=== PATIENT | female | born 1970 | race Hispanic/Latino ===

== ENCOUNTER 2017-04-25 01:43 | Emergency (ER) | payer BC ==
[2017-04-25 02:42] LABS: Hematocrit 32.7 % (36.0-47.0); Mean Platelet Volume 7.7 fL (7.4-10.4); Red Blood Cell (RBC) Count 4.56 mill/uL (4.20-5.40); White Blood Cell (WBC) Count 14.1 thou/uL (4.8-10.8)
[2017-04-25 02:53] LABS: ALT (SGPT) 43 U/L (8-55); AST (SGOT) 19 U/L (5-34); Alkaline Phosphatase 98 U/L (40-150); Anion Gap 12 mmol/L (10-20); BUN (Urea Nitrogen) 11 mg/dL (7.0-18.7); Bilirubin, Total 0.2 mg/dL (0.2-1.2); Calc. Creatinine Clearance 0 mL/min (70-130); Calcium 8.8 mg/dL (7.8-10.44); Carbon Dioxide 23 mmol/L (22-29); Chloride 107 mmol/L (98-107); Estimated GFR-MDRD 85; Globulin 3.3 g/dL (2.4-3.5); Protein, Total 7.1 g/dL (6.0-8.3)
[2017-04-25 02:57] LABS: Troponin I Less than 0.010 ng/mL (< 0.028)
[2017-04-25 03:03] LABS: #Basophils 0.1 thou/uL (0.0-0.2); #Eosinphils 0.1 thou/uL (0.0-0.7); #Lymphocytes 2.7 thou/uL (1.20-3.40); #Monocytes 1.3 thou/uL (0.11-0.59); #Neutrophils 9.9 thou/uL (1.40-6.50); %Basophils 0.9 % (0.0-1.0); %Eosinophils 0.8 % (0.0-10.0); %Monocytes 9.3 % (0.0-10.0); Anisocytosis SLIGHT = 6-15 cells (100X) (0-5/hpf); Microcytosis SLIGHT = 6-15 cells (100X) (0-5/hpf)
[2017-04-25] MEDS ORDERED: Ketorolac Tromethamine 30 MG/ML VIAL ONE (04:52)
[2017-04-25] MEDS ORDERED: Methocarbamol 1 GM in Sodium Chloride 0.9% 100 ML IVPB SCH (05:00)
--- NOTE | 2017-04-25 08:36 | RAD ---
RADIOGRAPH CHEST 2 VIEWS: HISTORY: 46-year-old female with dyspnea, bronchitis, and walking pneumonia. FINDINGS: There is no air space density, pulmonary edema, pleural effusion, pneumothorax, or cardiomegaly. IMPRESSION: No acute cardiopulmonary findings. abilio [] POS: [facility]
== END 2017-04-25 06:07 | disposition home or self-care (01) ==
LOC: ERS 01:43
DX: R07.89 Other chest pain (principal); F32.9 Major depressive disorder, single episode, unspecified; F41.9 Anxiety disorder, unspecified; F17.210 Nicotine dependence, cigarettes, uncomplicated; Z79.899 Other long term (current) drug therapy
CPT/HCPCS: 36415; 71020; 80053; 81025; 82553; 84484; 84703; 85025; 85379; 94640; 96365; 96375; J1885; J2800; J7050; J7620

== ENCOUNTER 2017-04-26 11:26 | Emergency (ER) | payer BC | END 2017-04-26 13:32 | disposition home or self-care (01) | LOC: ERS 11:26 | DX: R05 Cough (principal); F32.9 Major depressive disorder, single episode, unspecified; F41.9 Anxiety disorder, unspecified; F17.210 Nicotine dependence, cigarettes, uncomplicated; Z79.899 Other long term (current) drug therapy; Z71.6 Tobacco abuse counseling | CPT/HCPCS: 99406 ==

== ENCOUNTER 2018-03-28 08:24 | Outpatient (CLI) | payer BC ==
--- NOTE | 2018-03-28 10:33 | RAD ---
LUMBAR SPINE 3 VIEWS: HISTORY: Low back pain. FINDINGS: The lumbar vertebrae maintain normal height and alignment. Disk spaces are maintained. No evidence of spondylolisthesis. No significant degenerative osteophytes. IMPRESSION: Unremarkable lumbar spine. POS: [facility]
== END 2018-03-28 08:25 | disposition home or self-care (01) ==
LOC: RAD-FRANK 08:24
PROVIDERS: ATTEND Nurse Practitioner Family
DX: M54.5 Low back pain (principal)
CPT/HCPCS: 72100